=== PATIENT | female | born 1930 | race Caucasian/White ===

== ENCOUNTER → 2017-02-12 | Outpatient (CLI) | payer MEDICARE, OTHER ==
[~2017-02-12] MED LIST: ACET65TA OR; ACIDCAP PO; AMOLODIPINE PO; ASPI325T OR; BABY81CH OR; CALCIUM PO; CENTRUM SILVER PO; CRANPOW2 PO; FISHCAP PO; FURO40TA2 OR; OMEPPOW18 PO; POTASSIUM PO; PREMARIN VAG CREAM EC; SIMVPOW2 PO; TIOTROPIUM INH; TRAM50TA2 OR; VIT PO; VITAMIN D 3 PO; [UNRECOGNIZED DRUG - OTHER] INH; [UNRECOGNIZED DRUG - OTHER] PO
--- NOTE | 2017-02-12 11:40 | REP ---
Diagnostic digital right mammogram: 02/12/2017. Comparison: Right breast ultrasound and digital diagnostic mammogram 06/26/2016, screening mammogram 06/18/2016, 06/14/2015 all at [facility]. Clinical history: Follow-up for small 4 mm retroareolar nodule seen on screening mammogram MLO view only. Standard CC, MLO, true ML and spot magnified CC and MLO views right breast retroareolar zone. There is a moderate amount of residual fibroglandular tissue remaining which may reduce the sensitivity of mammography. Scattered fibronodular densities in the breast parenchyma in a pattern and distribution unchanged from previous studies. There is no evidence of a persistent nodule in the retroareolar zone on the MLO view on today's study or on the CC view. Spot magnified MLO and CC views also show no persistent nodule in the retroareolar zone. Scattered lymph nodes are seen in the axilla. No dominant masses, suspicious cluster of microcalcifications or secondary signs of malignancy are seen. IMPRESSION: BI-RADS/ACR category 2 mammogram. Benign finding(s). Routine annual screening mammography (for women over age 40). No evidence of malignancy. A previous mammogram finding on a single view could not be reproduced with a repeat mammogram and spot magnification views as well as a true ML today. Scattered fibronodular densities are seen in the parenchyma as on multiple previous studies. This mammogram was interpreted with the aid of an FDA-approved computer-aided detection system. A. Negative x-ray reports should not delay biopsy if a dominant or clinically suspicious mass is present. B. Four to eight percent of cancers are not identified by x-ray. C. Adenosis and dense breasts may obscure an underlying neoplasm. The patient states she had a clinical breast exam 06/2016. The patient letter being requested is M1. Signed by Jarred Rosales MD 02/12/2017 07:37 P
== END ==
LOC: M RAD 10:08
PROVIDERS: ATTEND Surgery
DX: Z12.31 Encounter for screening mammogram for malignant neoplasm of breast (principal)

== ENCOUNTER → 2018-09-02 | Outpatient (CLI) | payer MEDICARE, OTHER ==
[~2018-09-02] MED LIST changes: +ALBU83IN INH; +BREO1INH INH; +CO Q10CA PO; +HYDR-643 PO; +MOBI4TAB PO; +PERC5TAB12 PO; +PROAAER10 INH
--- NOTE | 2018-09-02 13:58 | REP ---
CT of the chest without IV contrast: Comparison is an outside study dated 09/18/2015. There is a new 5.9 cm pleural-based mass in the apex of the right upper lobe as an interval change. The mass has eroded into the posterior arch of the right second rib. There is a 13 mm ground-glass density superiorly in the apex of the left upper lobe. This is unchanged. This extends inferolaterally to the pleura where there is a second ground-glass density measuring 10 mm that is pleural-based. This was not present previously. There is a pleural-based ground-glass density posteriorly in the left upper lobe on image 33. This has increased in size. There is a 3.5 cm mass with irregular margins in the left lower lobe on image 61. This is unchanged and may represent a parenchymal scar or round atelectasis. There is a stable calcified granuloma in the left lower lobe on image 76, unchanged. There is no mediastinal lymph node enlargement. There is no axillary lymph node enlargement. In the absence of IV contrast the study is insensitive for hilar lymph node enlargement. The unenhanced thoracic aorta is unremarkable. Cardiac size is upper normal. The visualized upper abdominal contents are unremarkable. There is no adrenal mass. Impression: New lung masses as described. Electronically Signed by Ilya Bucio MD 09/02/2018 01:48 P
== END ==
LOC: M RAD 12:28
PROVIDERS: ATTEND Nurse Practitioner Family
DX: R91.8 Other nonspecific abnormal finding of lung field (principal)

== ENCOUNTER → 2018-09-04 | Outpatient (CLI) | payer MEDICARE, OTHER ==
[2018-09-04 18:14] LABS: INR 1.04; PROTHROMBIN TIME 13.3 SECONDS (11.8-14.0)
[2018-09-04 18:15] LABS: PARTIAL THROMBOPLASTIN TIME 32.6 SECONDS (25.0-38.4)
== END ==
LOC: M SMT 14:02
PROVIDERS: ATTEND Internal Medicine Pulmonary Disease
DX: R91.8 Other nonspecific abnormal finding of lung field (principal); Z79.82 Long term (current) use of aspirin; Z79.51 Long term (current) use of inhaled steroids

== ENCOUNTER → 2018-09-18 | Outpatient (CLI) | payer MEDICARE, OTHER ==
[~2018-09-18] MED LIST changes: +LIDOCAINE 1% MDV 20ML VIAL As Ordered ONE
--- NOTE | 2018-09-18 12:49 | REP ---
CHEST, SINGLE VIEW: Single view of the chest is performed status post right lung biopsy. No pneumothorax is seen. Right upper lobe mass is again seen. There is no acute infiltrate. IMPRESSION: No pneumothorax status post right lung biopsy. Electronically Signed by Ilya Walsh MD 09/21/2018 01:02 P
[2018-09-18 12:51] VITALS: BP 135/63
--- NOTE | 2018-09-18 15:03 | REP ---
CT-guided right upper lobe lung biopsy The procedure is performed by AYSHA Wu, under the direct supervision of Dr. Walsh. The patient has a history of a pleural-based mass measuring 5.9 cm in the apex of the right upper lobe lung on the CT dated is 09/02/2018. The risks and benefits of the procedure were explained to the patient and informed consent was obtained both orally and written. Directly prior to the start of the procedure, a formal timeout was done in the exam room. The right upper lobe was localized using CT guidance. Skin was prepped and draped in the usual sterile fashion. 7 ml of 1% lidocaine was used as a local anesthetic. Using CT guidance a 19/20 gauge coaxial needle biopsy system was inserted and advanced into the nodule. 4 core biopsy samples were obtained and sent to the lab. CT images obtained directly after the biopsy show no evidence of pneumothorax. After the appropriate amount of monitored convalescence the patient was discharged from the department. Reviewed by AYSHA Ring 09/18/2018 12:30 P Electronically Signed by Ilya Walsh MD 09/18/2018 02:55 P
== END ==
LOC: M IRPRO 08:27 → M RADPRO 08:27
PROVIDERS: ATTEND Internal Medicine Pulmonary Disease
DX: C44.622 Squamous cell carcinoma of skin of right upper limb, including shoulder (principal)

== ENCOUNTER → 2018-10-06 | Outpatient (CLI) | payer MEDICARE, OTHER ==
[~2018-10-06] MED LIST changes: -LIDOCAINE 1% MDV 20ML VIAL As Ordered ONE
--- NOTE | 2018-10-07 07:46 | RADONC ---
RADIATION ONCOLOGY CONSULTATION NOTE DATE: 10/06/2018 CHART #: [id number] DIAGNOSIS: Right upper lobe lung cancer. STAGE: IV, T4N0M1. ECOG PERFORMANCE STATUS: 2. CONSULTATION NOTE: Ms. 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 HISTORY OF PRESENT ILLNESS: The patient was in her usual state of health but began developing some pain over her right shoulder and chest wall. A CT was done of the right shoulder on 08/25/2018 which revealed a right upper lobe soft tissue density extending into the posterior pleural surface measuring 4.4 x 4.[address] scan of the chest was done which confirmed a new 5.9 cm pleural based mass in the apex of the right upper lobe. There was also a 3.5 cm mass in the left upper lobe. There was no mediastinal lymphadenopathy present. On 09/18/2018, the patient underwent an image guided biopsy of her right upper lobe and pathology revealed a moderately differentiated squamous cell carcinoma. PET scan was done on 09/30/2018 and showed a large right upper lobe mass which was hypermetabolic. There was also a left lower lobe nodule which was hypermetabolic and there was a focus in the left adrenal gland which was hypermetabolic. The left scapula also showed a bone metastasis that was hypermetabolic. The patient has a long history of COPD and is on 2 liters of nasal oxygen. We are attempting to obtain pulmonary function tests from Dr. Hardin's office. She is now presenting for consideration of palliative radiation therapy to her lung. An MRI of the brain has not yet been ordered. PAST MEDICAL HISTORY: The patient's past medical history is positive for anxiety as well as COPD. She is oxygen dependent. She also has a history of depression and a dislocated right shoulder. She has history of diverticulitis and diverticulosis. She reports that she fractured her right humerus at one point. She is noted to have heart disease and a cerebral aneurysm. This is being followed in [place]. PAST SURGICAL HISTORY: Appendectomy. She has had cardiac stents in 2001. She had cataract surgery bilaterally. She has had a cholecystectomy as well as a hemorrhoidectomy. She has had three hip replacements and hysterectomy. ALLERGIES: The patient is allergic to CEPHALEXIN and also to KEFLEX and WARFARIN. SOCIAL HISTORY: The patient has smoked at least one pack of cigarettes per day for 57 years. She reports that she quit in 2000. She does not abuse alcohol. FAMILY HISTORY: The patient's family history is positive for a daughter with breast cancer and a granddaughter with colon cancer. REVIEW OF SYSTEMS: The patient's review of systems is positive for some hearing loss, decreased energy, anxiety and some anorexia with weight loss. It is otherwise noncontributory. Denies nausea, vomiting, fevers, chills, night sweats, diplopia, headaches, anxiety or depression, anorexia, weight loss, visual disturbances, chest pain, urinary or bowel difficulties, bone pain, or neurological problems. PHYSICAL EXAMINATION: The patient is a chronically ill-appearing elderly female who is presenting in a wheelchair on nasal oxygen. HEENT: Normocephalic, atraumatic. Extraocular movements are intact. There is no palpable cervical, supraclavicular, infraclavicular, axillary or inguinal lymphadenopathy present. Her lungs are generally clear. Her heart has a regular rate and rhythm. Her abdomen is benign with no hepatosplenomegaly, masses or tenderness. ASSESSMENT: I believe this patient is a candidate for palliative radiation therapy and I have so informed her. I have discussed with the patient in detail the potential benefits as well as possible acute and chronic sequelae of external beam radiation therapy. We have discussed logistics of treatment planning, simulation and subsequent fractionated daily radiation treatments. I am scheduling the patient for the next available palliative radiation slot and I have so informed her. In addition, I have scheduled the patient for an MRI of the brain to further evaluate for any metastatic disease. I have explained to the patient and her family that this treatment is for palliative purposes only. I also explained the risks to the lung and that she may have more difficulty breathing. We will obtain her pulmonary functions and run a treatment planning CT to generate a dose volume histogram and then see whether or not she can actually handle radiation. We may actually have to miss the lower portion of the large mass in order to keep the lung within its tolerance limits. In light of the fact that this is widely metastatic, we will be balancing out our positive effects with potential drawbacks of treatment. Thank you for allowing us to participate in the care of this very pleasant woman. If I could be any further assistance or provide you any information, please free to contact me at anytime. As always warm regards. cc: MD Serina Olson NP Lawrence Kramer, MD
== END ==
LOC: M ONCR 10:03
PROVIDERS: ATTEND Radiology Radiation Oncology
DX: C34.11 Malignant neoplasm of upper lobe, right bronchus or lung (principal)

== ENCOUNTER → 2018-10-13 | Outpatient (CLI) | payer MEDICARE, OTHER ==
[~2018-10-13] MED LIST changes: +PROHANCE 279.3MG/ML 15ML VIAL (A9576) As Ordered ONE
--- NOTE | 2018-10-14 07:39 | REP ---
MRI BRAIN WITHOUT AND WITH CONTRAST: HISTORY: Lung carcinoma. CONTRAST: ProHance 13 mL. Areas of increased signal intensity on T2-weighted images are present in the periventricular and subcortical white matter. This represents small vessel ischemic disease. There is no intraparenchymal hemorrhage, infarct, mass, or midline shift. There is no abnormal enhancement. The ventricular system and cortical sulci are dilated consistent with moderate volume loss. There is no extracerebral collection. 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 The sinuses are clear. IMPRESSION: 1. Small vessel ischemic disease. 2. Moderate volume loss. 3. 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 MRA of the brain is recommended for further evaluation. Electronically Signed by Yaw Parra MD 10/14/2018 08:20 A
== END ==
LOC: M RAD 15:36
PROVIDERS: ATTEND Radiology Radiation Oncology
DX: C34.11 Malignant neoplasm of upper lobe, right bronchus or lung (principal); I67.82 Cerebral ischemia
CPT/HCPCS: 70553; A9576

== ENCOUNTER 2018-10-27 07:36 | Emergency (ER) | payer MEDICARE, OTHER ==
[~2018-10-27] VITALS: Ht 160 cm; Wt 65.0 kg
[~2018-10-27 07:36] MED LIST changes: -PROHANCE 279.3MG/ML 15ML VIAL (A9576) As Ordered ONE
--- NOTE | 2018-10-27 08:46 | REP ---
Chest two views including AP and lateral views with the patient sitting: Comparison is the PA view of the chest dated 09/18/2018, post lung biopsy and chest CT dated 08/13/2018. There is a large Pancoast tumor in the apex of the right lung upper lobe, unchanged from the comparison studies. On the comparison CT this mass erodes into the posterior arch of the right second rib. The left lung ground-glass densities and left lower lobe mass identified on the comparison CT are not identified on the current plain film study. There is an old healed fracture of the left humeral surgical neck. In addition to a there is a round lucent lesion in the left humeral proximal shaft, possibly a lytic lesion. There is diffuse bilateral interstitial coarsening which appears to be chronic when compared to a PA and lateral chest dated 08/12/2017, suggesting chronic interstitial lung disease. Cardiac size is normal. The xin and mediastinum are unchanged. Impression: Large right upper lobe Pancoast tumor as described. Possible lytic lesion in the proximal left humeral shaft. Old healed fracture of the left humeral surgical neck. Chronic interstitial coarsening. The left lung lesions identified on the comparison CT are not visible on the current plain film study. Electronically Signed by Ilya Bucio MD 10/27/2018 08:38 A
[2018-10-27 09:23] LABS: BASO # 0.1 10^3/uL (0.0-0.2); BASO % 0.5 % (0.0-1.0); EOS % 0.3 % (0.0-3.0); HEMATOCRIT 31.5 % (36.0-47.0); HEMOGLOBIN 9.8 g/dl (12.0-15.5); LYMPH # 0.6 10^3/uL (1.5-4.5); LYMPH % 3.7 % (24.0-44.0); MEAN CORPUSCULAR HEMOGLOBIN 24.9 pg (27.0-33.0); MEAN CORPUSCULAR HGB CONC 31.1 g/dl (32.0-36.5); MEAN CORPUSCULAR VOLUME 80.2 fl (80.0-96.0); MONO # 1.1 10^3/uL (0.0-0.8); MONO % 7.2 % (0.0-5.0); NEUTROPHILS # 13.1 10^3/uL (1.8-7.7); NEUTROPHILS % 87.8 % (36.0-66.0); PLATELET COUNT, AUTOMATED 510 10^3/uL (150-450); RED BLOOD COUNT 3.93 10^6/uL (4.00-5.40); WHITE BLOOD COUNT 14.9 10^3/uL (4.0-10.0)
[2018-10-27 10:12] LABS: ALBUMIN 2.1 GM/DL (3.2-5.2); ALT/SGPT 14 U/L (12-78); BILIRUBIN,DIRECT 0.3 MG/DL (0.0-0.2); BILIRUBIN,TOTAL 0.5 MG/DL (0.2-1.0); BLOOD UREA NITROGEN 14 MG/DL (7-18); CALCIUM LEVEL 10.1 MG/DL (8.8-10.2); CARBON DIOXIDE LEVEL 32 MEQ/L (21-32); CHLORIDE LEVEL 96 MEQ/L (98-107); CK-MB VALUE MASS < 1.0 NG/ML (<3.6); CPK CREATINE PHOSPHOKINASE 10 U/L (26-192); CREATININE FOR GFR 0.62 MG/DL (0.55-1.30); GLOMERULAR FILTRATION RATE > 60.0 (>32); GLUCOSE, FASTING 115 MG/DL (70-100); NT-PRO BNP 1077 PG/ML (<450); POTASSIUM SERUM 4.5 MEQ/L (3.5-5.1); SODIUM LEVEL 134 MEQ/L (136-145); THYROID STIMULATING HORMONE 0.786 uIU/ML (0.358-3.740); TOTAL PROTEIN 6.7 GM/DL (6.4-8.2); TROPONIN I < 0.02 NG/ML (< 0.10)
--- NOTE | 2018-10-27 10:41 | ECGEPIP ---
[facility] - ED Test Date: 2018-10-27 Pat Name: ANUJ SOOD Department: Room: - Gender: Female Corn Grower: : 1930 Requested By: ROBINSON Jimenes Order Number: [id number] Reading MD: Darleen Naqvi Measurements Intervals [place] Rate: 77 P: 43 SC: 136 QRS: -20 QRSD: 117 T: 70 QT: 358 QTc: 405 Interpretive Statements SINUS RHYTHM MODERATE INTRAVENTRICULAR CONDUCTION DELAY NO PRIOR Electronically Signed on 10-27-2018 10:41:04 EDT by Darleen Naqvi
[2018-10-27 11:09] VITALS: O2SAT 91
[2018-10-27 12:49] VITALS: BP 134/63
--- NOTE | 2018-10-28 14:39 | ED PDOC ---
Post-Departure Follow-Up dr ott and dr coleman faxed formal report of cxr for fu mikeg Amparo Wadsworth MD Oct 28, 2018 14:39
== END 2018-10-27 12:58 | disposition home or self-care (01) ==
LOC: M ED 07:36 → EDBD 07:36 → M ED 12:58
DX: R06.02 Shortness of breath (principal); J44.9 Chronic obstructive pulmonary disease, unspecified; C34.11 Malignant neoplasm of upper lobe, right bronchus or lung; C79.51 Secondary malignant neoplasm of bone; Z99.81 Dependence on supplemental oxygen; I25.10 Atherosclerotic heart disease of native coronary artery without angina pectoris; I67.9 Cerebrovascular disease, unspecified; F41.9 Anxiety disorder, unspecified; F32.9 Major depressive disorder, single episode, unspecified; Z87.891 Personal history of nicotine dependence; Z88.5 Allergy status to narcotic agent; Z88.1 Allergy status to other antibiotic agents; Z88.8 Allergy status to other drugs, medicaments and biological substances; Z79.899 Other long term (current) drug therapy; Z79.82 Long term (current) use of aspirin

== ENCOUNTER 2018-11-02 08:56 | Outpatient (RCR) | payer MEDICARE, OTHER ==
[2018-10-14 11:36] LABS: HEMATOCRIT 33.6 % (36.0-47.0); HEMOGLOBIN 10.7 g/dl (12.0-15.5); LYMPH % 14.7 % (24.0-44.0); MEAN CORPUSCULAR HEMOGLOBIN 24.8 pg (27.0-33.0); MEAN CORPUSCULAR HGB CONC 31.8 g/dl (32.0-36.5); NEUTROPHILS # 10.4 10^3/uL (1.8-7.7); NEUTROPHILS % 75.1 % (36.0-66.0); RED BLOOD COUNT 4.31 10^6/uL (4.00-5.40); WHITE BLOOD COUNT 13.8 10^3/uL (4.0-10.0)
--- NOTE | 2018-10-16 07:27 | RADONC ---
RADIATION ONCOLOGY SIMULATION NOTE DATE: 10/14/2018 CHART #: [id number] Mrs. Alonzo with a diagnosis of right upper lobe primary bronchogenic carcinoma, stage IV (T4N0M1) has diagnosis of a squamous cell carcinoma involving the right upper lobe. Initially, an immobilization device was constructed for day-to-day accuracy and treatment delivery. The patient was placed supine and after the immobilization device was constructed images at 3-mm intervals were obtained throughout the entire thorax. The patient tolerated this procedure quite well with no significant untoward side effects. I was present during the entire simulation process. As stated, it was well tolerated and the images will be utilized for contouring purposes to outline both the normal surrounding structures as well as treatment tumor volume. A radiation therapy treatment plan will be developed thereafter. The patient was sent home in excellent condition following her simulation.
--- NOTE | 2018-10-28 14:44 | RADONC ---
RADIATION ONCOLOGY PROGRESS NOTE DATE: 10/26/2018 CHART NUMBER: [id number] PROGRESS NOTE: Ms. Alonzo is presently at a dose of 1800 cGy to her right rib and lung and is tolerating treatments quite well at this point with no complaints related to her radiation therapy. She is having no increased pain or problems. REVIEW OF SYSTEMS: The patient's review of systems is positive for some continued pain over the right posterior chest, which remains to be basically unchanged. She is also on nasal oxygen and has mobility issues presenting in a wheelchair. This causes physical limitations. PHYSICAL EXAMINATION: The patient's skin is in good condition with no evidence of moist or dry desquamation. The remainder of her physical exam remains unchanged as well. Ms. Alonzo is tolerating treatments quite well and radiation will continue as scheduled.
--- NOTE | 2018-11-04 06:35 | RADONC ---
RADIATION ONCOLOGY TREATMENT SUMMARY DATE: 11/02/2018 CHART #: [id number] DIAGNOSIS: Right upper lobe lung cancer. STAGE: IV, T4N0M1. ECOG PERFORMANCE STATUS: 3. TREATMENT SUMMARY: Ms. 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 We treated the patient to the large right lung mass eroding into the ribs and chest wall for a dose of 3000 cGy delivered in 10 fractions of 300 cGy each over 14 elapsed days from 10/19/2018 through 11/02/2018. The patient's primary site was treated on a linear accelerator utilizing a 3-D conformal technique with parallel opposed 15 MV photon beams. Ms. Alonzo tolerated her treatments quite well and was able to complete therapy as prescribed without interruption. I have scheduled the patient to see me again in 1 month for further followup. She will also continue to be followed by her other physicians as well. cc: MD Serina Olson NP Lawrence Kramer, MD
== END 2018-11-07 ==
LOC: M ONCR 08:56
PROVIDERS: ATTEND Radiology Radiation Oncology
DX: C34.11 Malignant neoplasm of upper lobe, right bronchus or lung (principal)

== ENCOUNTER → 2018-12-02 | Outpatient (CLI) | payer MEDICARE, OTHER ==
--- NOTE | 2018-12-03 12:19 | RADONC ---
RADIATION ONCOLOGY FOLLOWUP NOTE DATE: 12/02/2018 CHART NUMBER: [id number] DIAGNOSIS: Right upper lobe lung cancer. STAGE: IV, T4N0M1 ECOG PERFORMANCE STATUS: 4 FOLLOWUP NOTE: Ms. 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 The patient presents today reporting that generally she continues to deteriorate. She is complaining of contralateral left shoulder pain as well as pain over the left breast nodule and left back nodule. In addition, she is complaining of pain in her knees. The only good news is that the patient's pain in the treated area appears to be largely resolved. She is doing quite well with that and has responded nicely to radiation considering the initial extent of her disease. REVIEW OF SYSTEMS: The patient's review of systems is continuing to be positive for shortness of breath and the need for oxygen as well as knee pain, shoulder pain, pain over skin nodules, fatigue and other issues. PHYSICAL EXAMINATION: There is now a new several centimeter subcutaneous mass over the patient's back, which is tender to touch. In addition, there is 2 or 3 cm mass over the patient's left breast, which is also tender to touch with some skin change and involvement already. There is tenderness over the patient's left shoulder. She is presenting in a wheelchair. I had a very lengthy discussion once again with this patient's family. I let it be known that I think she responded well to radiation at this point, and therefore, apparently her tumor is responsive to radiation treatments. If she wishes that to undergo radiation to other sites that is a possibility. I did explain however that the speed with which new lesions as appearing is quite disturbing. I personally reviewed the PET scan with this patient and her family from just 8 weeks ago and there were no lesions in the subcutaneous area of the patient's back or her breast. Indeed, the left papular lesion is actually small on the PET scan. The patient's family report that the lesions of her skin and other sites have come up very rapidly. I explained to them that considering her advanced age and physical limitations hospice would be reasonable. Indeed at this time, she is on palliative care but is refusing to take her pain medication as she does not wish to become addicted. I instructed her please take her pain medication because we do not want this patient to be in much discomfort. After a very lengthy discussion and review of the x-rays and discussion of hospice and other alternatives, I have not set anything up with this patient or her family. The family has my cell phone number as well as my work number, and I have let them know that I am available to them if I could be of any assistance. If they wish to undergo radiation at anytime, we can see them and initiate treatment as indicated. At this time however, I have recommended that they speak together as a family and discuss possible alternatives such as hospice. Considering her advanced age and multiple sites of disease, she would be spending most of the remainder of her time here receiving radiation treatments if she chooses to undergo that route of therapy. cc: MD Serina Olson NP Lawrence Kramer, MD
== END ==
LOC: M ONCR 12:51
PROVIDERS: ATTEND Radiology Radiation Oncology
DX: C34.11 Malignant neoplasm of upper lobe, right bronchus or lung (principal)